=== PATIENT | male | born 1940 | race Caucasian/White ===

== ENCOUNTER 2024-08-17 13:25 | Emergency (ER) | payer MEDICARE ==
[2024-08-17] MEDS: KETOROLAC 15 MG/ML 1 ML VIAL IVP STA (14:22)
[2024-08-17 14:31] LABS: Basophils # (A) 0.02 10*3/uL (0.00-0.10); Basophils % (A) 0.3 %; Eosinophils # (A) 0.03 10*3/uL (0.04-0.35); Eosinophils % (A) 0.5 %; HCT 42.9 % (39.6-50.0); HGB 14.9 g/dL (13.0-17.0); Lymphocytes # (A) 1.11 10*3/uL (0.90-5.00); Lymphocytes % (A) 16.7 %; MCH 31.4 pg (27.0-32.0); MCHC 34.7 g/dL (32.0-37.0); MCV 90.5 fL (80.0-97.0); Mean Platelet Volume 9.8 fL (9.5-12.2); Monocytes # (A) 0.64 10*3/uL (0.20-1.00); Monocytes % (A) 9.6 %; Neutrophils # (A) 4.84 10*3/uL (1.80-7.70); Neutrophils % (A) 72.6 %; Platelet Count 158 10*3/uL (140-440); RBC 4.74 10*6/uL (4.40-5.60); RDW 13.2 % (11.5-14.5); WBC 6.66 10*3/uL (4.50-10.00)
[2024-08-17 14:42] LABS: ALT 27 U/L (4-49); AST 35 U/L (17-59); African American GFR (CKD) 64 (>60 ml/min/1.73 sqM); Albumin 3.8 g/dL (3.5-5.0); Alkaline Phosphatase 88 U/L (38-126); Anion Gap 9 mmol/L; Blood Urea Nitrogen 28 mg/dL (9-20); Calcium 8.7 mg/dL (8.4-10.2); Carbon Dioxide 26 mmol/L (22-30); Chloride 102 mmol/L (98-107); Glucose 85 mg/dL (74-99); Non-African American GFR(CKD) 56 (>60 ml/min/1.73 sqM); Potassium 3.7 mmol/L (3.5-5.1); Sodium 137 mmol/L (137-145); Total Bilirubin 0.5 mg/dL (0.2-1.3); Total Protein 6.7 g/dL (6.3-8.2)
--- NOTE | 2024-08-17 14:46 | ED ---
Skin/Abscess/FB HPI - General Chief complaint: Skin/Abscess/Foreign Body Stated complaint: R leg swelling Time Seen by Provider: 08/17/24 13:45 Source: patient, family (), RN notes reviewed Mode of arrival: ambulatory Limitations: no limitations - History of Present Illness Initial comments: 84-year-old male presented to the ER for evaluation of right lower extremity swelling and redness. Patient notes on he felt feverish with chills. He states throughout the day he noticed increase in discomfort and swelling to right calf. Patient also notes erythema and warmth. Patient states this has progressed over the past couple of days with prompted him to be evaluated at urgent care this morning who ultimately sent patient to the ER for further evaluation. Patient denies any injuries or trauma to right lower extremity. He denies history of cellulitis or diabetes. He denies history of DVTs/PEs. No recent travel, no blood thinner use, denies smoking. Patient states he took Tylenol last night for discomfort along with a baby aspirin this morning. Patient denies any dizziness, lightheadedness, breath, chest pain, nausea, vomiting, abdominal pain, change in bowel habits or urinary complaints. - Related Data Previous Rx's Medication Instructions Recorded Cephalexin [Keflex] 500 mg PO Q6HR #40 cap 08/17/24 Sulfamethox-Tmp 800-160Mg [Bactrim 1 each PO Q12HR #20 tab 08/17/24 Ds] Allergies Allergy/AdvReac Type Severity Reaction Status Date / Time No Known Allergies Allergy Verified 08/17/24 13:31 Review of Systems ROS Statement: Those systems with pertinent positive or pertinent negative responses have been documented in the HPI. ROS Other: All systems not noted in ROS Statement are negative. Past Medical History Past Medical History: Hypertension Past Surgical History: Joint Replacement, Prostate Surgery Smoking Status: Never smoker General Exam Limitations: no limitations General appearance: alert, in no apparent distress Respiratory exam: Present: normal lung sounds bilaterally. Absent: respiratory distress, wheezes, rales, rhonchi, stridor Cardiovascular Exam: Present: regular rate, normal rhythm, normal heart sounds. Absent: systolic murmur, diastolic murmur, rubs, gallop, clicks Extremities exam: Present: full ROM, normal capillary refill (2+ right DP/PT pulses.), other (Right calf/hernandez is erythematous with mild edema. Warm to touch. No wounds or lacerations.) Neurological exam: Present: alert, oriented X3, CN II-XII intact Skin exam: Present: warm, dry, intact, normal color. Absent: rash Course Vital Signs 08/17/24 08/17/24 08/17/24 13:27 15:00 16:28 Temperature 97.6 F 97.3 F L Pulse Rate 69 74 71 Respiratory 16 18 18 Rate Blood Pressure 167/77 154/70 150/96 O2 Sat by Pulse 98 967 H 97 Oximetry Medical Decision Making - Medical Decision Making Was pt. sent in by a medical professional or institution (, PA, PLASTER MAKER, urgent care, hospital, or assisted...) When possible be specific @ -Patient sent by urgent care for further evaluation of right lower extremity erythema and edema. Did you speak to anyone other than the patient for history (EMS, parent, family, police, friend...)? What history was obtained from this source @ -Patient's , bedside, aiding in HPI past medical history. Did you review nursing and triage notes (agree or disagree)? Why? @ -I reviewed and agree with nursing and triage notes Were old charts reviewed (outside hosp., previous admission, EMS record, old EKG, old radiological studies, urgent care reports/EKG's, assisted records)? Report findings @ -No old charts were reviewed Differential Diagnosis (chest pain, altered mental status, abdominal pain women, abdominal pain men, vaginal bleeding, weakness, fever, dyspnea, syncope, headache, dizziness, GI bleed, back pain, seizure, CVA, palpatations, mental health, musculoskeletal)? @ -Cellulitis, lymphedema, DVT, fracture, sepsis... This list is not meant to be all-inclusive EKG interpreted by me (3pts min.). @ -As above X-rays interpreted by me (1pt min.). @ -None done CT interpreted by me (1pt min.). @ -None done U/S interpreted by me (1pt. min.). @ -Ultrasound venous Doppler right lower extremity negative for acute evidence of DVT. What testing was considered but not performed or refused? (CT, X-rays, U/S, la bs)? Why? @ -None What meds were considered but not given or refused? Why? @ -None Did you discuss the management of the patient with other professionals (professionals i.e. DrChantell, PA, PLASTER MAKER, lab, RT, psych nurse, social service technician, gas compressor operator, teacher, air defense control officer, employment evaluator/case manager)? Give summary @ -No Was smoking cessation discussed for >3mins.? @ -No Was critical care preformed (if so, how long)? @ -No Were there social determinants of health that impacted care today? How? (Homelessness, low income, unemployed, alcoholism, drug addiction, transportation, low edu. Level, literacy, decrease access to med. care, long-term, rehab)? @ -No Was there de-escalation of care discussed even if they declined (Discuss DNR or withdrawal of care, Hospice)? DNR status @ -No What co-morbidities impacted this encounter? (DM, HTN, Smoking, COPD, CAD, Cancer, CVA, ARF, Chemo, Hep., AIDS, mental health diagnosis, sleep apnea, morbid obesity)? @ -None Was patient admitted / discharged? Hospital course, mention meds given and route, prescriptions, significant lab abnormalities, going to OR and other pertinent info. @ -Discharge. 84-year-old male presented the ER for evaluation of right lower extremity edema and erythema. On arrival vital signs stable. Patient had no signs acute distress nontoxic-appearing. Right lower extremity neurovascular intact. There is circumferential right calf erythema and edema. Warm to touch. No wounds. Laboratory studies obtained unremarkable. Ultrasound venous Doppler negative for acute evidence of DVT. Patient provided with symptomatic treatment with IV Toradol. Negative laboratory studies and ultrasound findings concerning of cellulitis for which patient will be started on p.o. Bactrim and Keflex. Advised close follow-up with PCP for reevaluation. Strict return parameters discussed. Patient discharged in stable condition. Patient verbally expressed understanding agreement care plan. Case discussed with ED attending, Dr. Murillo. Undiagnosed new problem with uncertain prognosis? @ -No Drug Therapy requiring intensive monitoring for toxicity (Heparin, Nitro, Insulin, Cardizem)? @ -No Were any procedures done? @ -No Diagnosis/symptom? @ -Cellulitis Acute, or Chronic, or Acute on Chronic? @ -Acute Uncomplicated (without systemic symptoms) or Complicated (systemic symptoms)? @ -Uncomplicated Side effects of treatment? @ -No Exacerbation, Progression, or Severe Exacerbation? @ -No Poses a threat to life or bodily function? How? (Chest pain, USA, VT, pneumonia, PE, COPD, DKA, ARF, appy, cholecystitis, CVA, Diverticulitis, Homicidal, Suicidal, threat to staff... and all critical care pts) @ -No - Lab Data Result diagrams: 08/17/24 14:24 08/17/24 14:24 Lab Results 08/17/24 08/17/24 08/17/24 Range/Units 14:24 14:24 14:24 WBC 6.66 (4.50-10.00) 10*3/uL RBC 4.74 (4.40-5.60) 10*6/uL Hgb 14.9 (13.0-17.0) g/dL Hct 42.9 (39.6-50.0) % MCV 90.5 (80.0-97.0) fL MCH 31.4 (27.0-32.0) pg MCHC 34.7 (32.0-37.0) g/dL Plt Count 158 (140-440) 10*3/uL MPV 9.8 (9.5-12.2) fL Immature Gran % (Auto) 0.3 % Neutrophils % 72.6 % Lymphocytes % 16.7 % Monocytes % 9.6 % Eosinophils % 0.5 % Basophils % 0.3 % Immature Gran # 0.02 (0.00-0.04) 10*3/uL Neutrophils # 4.84 (1.80-7.70) 10*3/uL Lymphocytes # 1.11 (0.90-5.00) 10*3/uL Monocytes # 0.64 (0.20-1.00) 10*3/uL Eosinophils # 0.03 L (0.04-0.35) 10*3/uL Basophils # 0.02 (0.00-0.10) 10*3/uL Sodium 137 (137-145) mmol/L Potassium 3.7 (3.5-5.1) mmol/L Chloride 102 (98-107) mmol/L Carbon Dioxide 26 (22-30) mmol/L Anion Gap 9 mmol/L BUN 28 H (9-20) mg/dL Creatinine 1.21 (0.66-1.25) mg/dL Est GFR (CKD-EPI)AfAm 64 (>60 ml/min/1.73 sqM) Est GFR (CKD-EPI)NonAf 56 (>60 ml/min/1.73 sqM) Glucose 85 (74-99) mg/dL Plasma Lactic Acid Ryan 1.0 (0.7-2.0) mmol/L Calcium 8.7 (8.4-10.2) mg/dL Total Bilirubin 0.5 (0.2-1.3) mg/dL AST 35 (17-59) U/L ALT 27 (4-49) U/L Alkaline Phosphatase 88 (38-126) U/L Total Protein 6.7 (6.3-8.2) g/dL Albumin 3.8 (3.5-5.0) g/dL - Radiology Data Radiology results: report reviewed, image reviewed Disposition Clinical Impression: Cellulitis Disposition: HOME SELF-CARE Condition: Stable Instructions (If sedation given, give patient instructions): Cellulitis (ED) Additional Instructions: Take Keflex and Bactrim as prescribed. Follow close with PCP in the next 2 to 3 days. Monitor for any worsening symptoms. Return to the ER for any new or worsening concerns. Prescriptions: Sulfamethox-Tmp 800-160Mg [Bactrim Ds] 1 each PO Q12HR #20 tab Cephalexin [Keflex] 500 mg PO Q6HR #40 cap Is patient prescribed a controlled substance at d/c from ED?: No Referrals: Hammad Puri DO [Primary Care Provider] - 1-2 days Zabrina Harris DPM [STAFF PHYSICIAN] - 1-2 days Time of Disposition: 16:16
--- NOTE | 2024-08-17 15:14 | US ---
EXAMINATION TYPE: US venous doppler duplex LE RT DATE OF EXAM: 08/17/2024 2:48 PM COMPARISON: NONE CLINICAL INDICATION: Male, 84 years old with history of calf pain swelling erythema; Right lower leg redness and swelling TECHNIQUE: The lower extremity deep venous system is examined utilizing real time linear array sonog jo ann with graded compression, color doppler sonography, and spectral doppler. SIDE PERFORMED: Right FINDINGS: VESSELS IMAGED: Common Femoral Vein Deep Femoral Vein Greater Saphenous Vein * Femoral Vein Popliteal Vein Small Saphenous Vein * Proximal Calf Veins (* superficial vessels) Right Leg: Appears negative for DVT, appropriate arterial venous spectral waveforms and color Dopple r flow. IMPRESSION: No ultrasound evidence for deep venous thrombosis. [facility], , 08/17/2024 3:12 PM
[2024-08-17 15:22] VITALS: RESP 18
[2024-08-17 16:31] VITALS: BP 150/96; PULSE 71; TEMP 97.3
== END 2024-08-17 16:31 | disposition home or self-care (01) ==
LOC: EC 13:25
DX: L03.115 Cellulitis of right lower limb (principal)
CPT/HCPCS: 36415; 80053; 83605; 85025; 93971; 99284; 96374; J1885